=== PATIENT | male | born 1970 | race Caucasian/White ===

== ENCOUNTER 2019-02-06 12:36 | Emergency (ER) | payer OTHER ==
[2019-02-06] MEDS ORDERED: predniSONE 20 MG TAB ONE (12:54)
== END 2019-02-06 13:20 | disposition home or self-care (01) ==
LOC: MADERS 12:36
DX: S90.562A Insect bite (nonvenomous), left ankle, initial encounter (principal); K21.9 Gastro-esophageal reflux disease without esophagitis; E78.5 Hyperlipidemia, unspecified; Z79.899 Other long term (current) drug therapy; W57.XXXA Bitten or stung by nonvenomous insect and other nonvenomous arthropods, initial encounter
CPT/HCPCS: 99283; J7512